=== PATIENT | female | born 1975 | race Caucasian/White ===

== ENCOUNTER 2016-09-16 17:19 | Observation (INO) | payer OTHER ==
[2016-09-16 17:51] VITALS: BMI 42.3
[2016-09-16 17:51] LABS: AUTOMATED BASOPHIL 0.6 % (0-2); AUTOMATED EOSINOPHIL 0.6 % (0-5); AUTOMATED LYMPH 18.1 % (17-44); AUTOMATED MONOCYTE 4.9 % (3-10); AUTOMATED NEUTROPHIL 75.8 % (45-76); MPV 8.4 fL (7.4-10.4)
[2016-09-16 18:02] LABS: BLOOD UREA NITROGEN 8 MG/DL (7-17); CALCULATED OSMOLALITY 266 MOs/Kg (270-290); CHLORIDE 104 mEq/L (98-107); ETOH-MGDL < 10 mg/dL; GLUCOSE 106 MG/DL (70-99); SODIUM LEVEL 139 mEq/L (137-146); TOTAL PROTEIN 7.7 G/DL (6.3-8.2)
[2016-09-16 18:05] LABS: ALL NEG? YES; MDMA* NEG (NEGATIVE); METHAMPHETAMINES NEG (NEGATIVE); OXYCODONE NEG (NEGATIVE)
[2016-09-16 18:11] LABS: RBC/URINE 0-2 (0-5)
[2016-09-16 18:12] LABS: LEUKOCYTES/URINE 1+ (NEGATIVE); NITRITE/URINE NEG (NEGATIVE); URINE OCCULT BLOOD NEG (NEG/TRACE)
[2016-09-16] MEDS ORDERED: ZOLPIDEM TARTRATE 5 MG TAB PO PRN (18:29)
[2016-09-16] MEDS ORDERED: MAGNESIUM HYDROXIDE 30 ML BOTTLE PO PRN (18:29)
[2016-09-16] MEDS ORDERED: Aluminum;Magnesium;Simethicone 30 ML UDC PO PRN (18:29)
[2016-09-16] MEDS ORDERED: LORAZEPAM 1 MG TAB PO PRN (18:29)
[2016-09-16] MEDS ORDERED: ONDANSETRON HCL 4 MG ODT TAB PO PRN (18:29)
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
[2016-09-17] MEDS: ACETAMINOPHEN 325 MG/TAB TABLET PO PRN ×2 (05:22→13:08)
--- NOTE | 2016-09-17 20:31 | TUDEPART ---
Time Seen By Provider: 20:30 Discussion of OBS Stay: OFF ALL MEDS FOR A MONTH. NO ALCOHOL. INCREASING DEPRESSION. WILL REQUIRE INPAT STABILIZATION. NO SIGNS OF WITHDRAWAL, STABLE FOR [facility]. General: Pleasant FEMALE No acute distress. Neuro: Alert Oriented, calm and cooperative HEENT: Normocephalic atraumatic. Sclerae nonicteric. Extraocular movements intact. Oral mucosa pink and moist. Neck: Supple. Nontender. Good range of motion. No masses. Trachea is midline. No cervical adenopathy. Extremities: no cyanosis clubbing or edema. No palpable deformities. Skin: Warm and dry, no rashes Yes I personally saw and evaluated the patient. Disposition: Trans. to Other Hospital ([facility]) - Physical Exam Constitutional: Alert (Awake), No apparent distress Oriented to: Time, Person, Place Last recorded Vital Signs: Last Vital Signs Temp 98.4 F 09/17/16 17:40 Pulse 86 09/17/16 17:40 Resp 20 09/17/16 17:40 BP 133/77 09/17/16 17:40 Pulse Ox 100 09/17/16 17:40 Oxygen Pulse Oxygen Saturation 99 O2 Device Oxygen Flow Rate Fraction of Inspired Oxygen ( FIO2) - HEENT Head: Normal ( normocephalic) Eye Exam: Normal (PERRL, EOMI, Sclera white) Oropharynx: Normal (Pharynx:Moist without exudate,Gums-no swelling) Tympanic Membrane: Normal ENT EAC: Normal TMJ: Normal Nose: No Symptoms Reported (septum midline) - Respiratory/Cardiovascular Respiratory: Normal - CTA (BBS clear to auscultation without adventitious sounds ) Cardiovascular: Normal (RRR without murmur, gallop or rub) - GI Auscultation: Normal (NABS) Palpation: Normal (Soft,No rebound or guarding, non distended) Tenderness: Non tender Alejandro's Sign: Negative - Musculoskeletal Back: Normal (Non-Tender) Extremities: Normal (Normal tone, Pulses 2+ No cyanosis or edema, FROM) - Integumentary Skin: Normal, Warm, Dry Lymphatics: Normal (no adenopathy) - Neurologic Memory Impaired: Normal Motor Function: Normal (Normal tone, Pulses 2+ No cyanosis or edema, FROM) Cranial Nerve: Normal (CN II-X11 intact sensation, strength 5/5) Cerebellar: Normal Mood Description: Normal Perception: Normal
[2016-09-17 20:36] VITALS: BP 137/89; PULSE 81; TEMP 98.2
== END 2016-09-17 20:18 ==
LOC: ED 17:19 → EDINP 18:29 → TUOBSINP 18:50
PROVIDERS: ADMIT Physician Assistant Medical; ATTEND Physician Assistant Medical
DX: F32.9 Major depressive disorder, single episode, unspecified (principal); R45.851 Suicidal ideations
CPT/HCPCS: 36415; 80053; 80307; 81001; 81025; 85025; 86592; 99285; G0378; J3490